=== PATIENT | male | born 1990 | race African-American/Black ===

== ENCOUNTER 2020-06-18 08:33 | Outpatient (REF) | payer MEDICAID, SELFPAY | END 2020-06-18 08:34 | disposition home or self-care (01) | LOC: HO.LAB 08:33 | PROVIDERS: Visit Provider Internal Medicine | DX: Z20.822 Contact with and (suspected) exposure to COVID-19 (principal) | CPT/HCPCS: 36415; C9803; U0003; U0005 ==

== ENCOUNTER → 2021-08-12 14:23 | Outpatient (BNVA) | payer OTHER, SELFPAY | PROVIDERS: Visit Provider Internal Medicine | DX: S67.195A Crushing injury of left ring finger, initial encounter (principal); S67.197A Crushing injury of left little finger, initial encounter; S67.22XA Crushing injury of left hand, initial encounter; W31.9XXA Contact with unspecified machinery, initial encounter | CPT/HCPCS: 73130; 99203 ==

== ENCOUNTER → 2021-08-19 14:03 | Outpatient (BNVA) | payer OTHER, SELFPAY | PROVIDERS: Visit Provider Internal Medicine | DX: S67.195D Crushing injury of left ring finger, subsequent encounter (principal); S67.197D Crushing injury of left little finger, subsequent encounter; W23.0XXD Caught, crushed, jammed, or pinched between moving objects, subsequent encounter | CPT/HCPCS: 99213 ==

== ENCOUNTER 2023-09-27 16:21 | Emergency (ER) | payer SELFPAY ==
--- NOTE | ~2023-09-27 | XR_ITS ---
EXAMINATION: XR LUMBOSACRAL SPINE CLINICAL INFORMATION: Pain, injury COMPARISON: None available. TECHNIQUE: Three views of the lumbosacral spine. FINDINGS: The vertebral bodies and posterior elements are normal. The disc spaces are preserved and the vertebral alignment is normal. The paraspinal soft tissues are normal. XR/XR lumbar spine 2-3V IMPRESSION: Unremarkable examination.
[2023-09-27 16:28] VITALS: BP 137/73; PULSE 90; RESP 18; TEMP 37; O2SAT 97; BMI 26.5
--- NOTE | 2023-09-27 16:29 | ED.GENADULT ---
HPI - General Adult General Chief complaint: Back Pain/Injury Stated complaint: pinched nerve in back Time Seen by Provider: 09/27/23 16:33 Source: patient Mode of arrival: ambulatory Limitations: no limitations History of Present Illness HPI narrative: 33-year-old male with no significant past medical history presents to the ED today for evaluation of atraumatic left lower back pain x2 weeks, acutely worsening yesterday. Reports pain to the left lumbar region on waking 2 weeks ago. Endorses continued mild pain which was exacerbated while playing basketball yesterday. He admits the pain was so severe yesterday he took 2 oxycodone which only provided minimal pain relief. Denies radiation of pain. Pain is exacerbated with move it/ambulation. Denies hx of IVDU. Denies spinal surgeries. Denies injury or trauma. Denies fever, chills, nausea or vomiting, numbness/tingling/weakness of the lower extremities, saddle anesthesia, bowel or bladder incontinence or retention. Related Data Previous Rx's ?Medication ?Instructions ?Recorded cyclobenzaprine 5 mg tablet 5 mg PO Q8H PRN muscle spasm #10 09/27/23 tabs lidocaine 5 % topical patch 1 patch topical DAILY #15 ea 09/27/23 (Lidoderm) naproxen 500 mg tablet 500 mg PO Q8-12H PRN pain (scale 09/27/23 score 4-6) #20 tabs Allergies Allergy/AdvReac Type Severity Reaction Status Date / Time No Known Allergies Allergy Verified 09/27/23 16:30 [No Known Allergies*] Review of Systems Review of Systems: Constitutional: No fever, chills, fatigue, night sweats, weight changes ENT/Mouth: No ear pain, hearing loss, nasal congestion, sinus pain, rhinorrhea, sore throat Eyes: No eye pain, swelling, redness, vision changes, discharge Cardio: No chest pain, palpitations, [place], orthopnea, peripheral edema Pulm: No SOB, cough, sputum, wheezing, dyspnea, hemoptysis GI: No nausea, vomiting, hematemesis, abdominal pain, diarrhea, constipation, hematochezia, melena : No irregular bleeding, dysuria, frequency, urgency, hesitancy, hematuria, flank pain, urinary flow changes, urinary incontinence or retention MSK: +back pain, No neck pain, joint pain, myalgias Skin: No lesions, rashes Neuro: No weakness, numbness, paresthesias, LOC, dizziness, headache All other systems reviewed and are negative. [facility] Past Medical History Attestation statement: The following information was validated with the patient. Source: old records reviewed and nursing notes reviewed Social History Social History Advance Directives: No Advance Directives Information Provided: No Do you have a plan to hurt others: No Plan Physical Exam ED Vital Signs: Vital Signs - 24 hr 09/27/23 16:28 Temperature 98.6 F Pulse Rate 90 Respiratory Rate 18 Blood Pressure 137/73 Pulse Oximetry 97 Oxygen Delivery Method Room Air BMI result Body Mass Index 26.5 vital signs stable, afebrile Const General: cooperative, healthy appearing, comfortable, no acute distress, alert, awake and Physically active Orientation/consciousness: patient oriented x3 HENMT Head: Yes normal to inspection, Yes normocephalic and Yes atraumatic Eyes General: appearance normal, both eyes and all related structures Pupils: Equal, round and reactive pupils present EOM: EOMs intact bilaterally Neck Neck: Yes normal visual inspection, Yes full ROM and Yes no meningeal signs Resp Effort & Inspection: normal respiratory effort Auscultation: clear to auscultation bilaterally Cardio Rate: regular rate Rhythm: regular rhythm GI Inspection: Yes normal to inspection Palpation (GI): Soft to palpation and nontender General: Yes no CVA tenderness Back/Spine/Pelvis Other: + no midline spinous tenderness or step-off deformity. Is tenderness to palpation over left lumbar paraspinal muscles with palpable spasm Back: no CVA tenderness Skin General skin exam: no rashes or lesions noted Neuro Other: Strength 5/5 intact throughout.?No saddle anesthesia.?Sensation intact to light touch.?Neurovascular intact distally.? General: patient oriented x3, gait normal, tone normal, no meningeal signs and no focal motor deficits Cranial nerves: Yes Equal, round and reactive pupils present Gait exam (Neuro): Normal gait present Extrem General: Yes normal to inspection Course Course Course Narrative: RME performed by Luz Maria Chapa PA-C. Patient is a 33 year old assigned male at presenting to the emergency department with low back pain. Patient states he was playing basketball yesterday when he began to have left sided low back pain. Patient states that it dropped him to the court for 25 minutes. Patient states that he cannot tolerate sitting right now. Detailed physical exam and review of systems are deferred to the natural resources extension educator. Imaging ordered. Patient placed back in the waiting room pending room availability and results. Reevaluation(s) Reevaluation #1: 0373-- Exam consistent with spasm of lumbar paraspinal muscles. xr lumbar spine does not reveal fracture. discussed all imaging results with patient. Patient states he drove himself here and will not have a ride home so I will hold off on muscle relaxer. Patient given lidocaine patch and Toradol injection. Flexeril sent to pharmacy. Patient has remained stable throughout ED visit today. Discussed worrisome signs and symptoms and when to return to the ED. All questions answered at this time. Patient is agreeable with disposition and stable for discharge. Medical Decision Making Medical Decision Making MDM Narrative: 33-year-old male with no significant past medical history presents to the ED today for evaluation of atraumatic left lower back pain x2 weeks, acutely worsening yesterday. Vital signs stable. Afebrile. He is nontoxic-appearing and in no acute distress. In obvious discomfort with position changes. On exam, there is no midline spinous tenderness or step-off deformity. Is tenderness to palpation over left lumbar paraspinal muscles with palpable spasm. Full ROM intact to spine and b/l hips. 2+ popliteal pulses and dp/pt pulses bilaterally. NV intact distally. Sensation intact to light touch. Strength 5/5 intact throughout. Ambulating with slow but steady gait. Differential diagnosis includes MSK sprain, MSK strain, muscle spasm, disc herniation, sciatica. Low suspicion for fracture, subluxation, cauda equina, Guillain-[place], epidural abscess, cord compression. Plan for radiographs, pain control, re-evaluation. Differential Diagnosis Differential Diagnoses: The differential diagnosis associated with the presentation includes as above Admission/Observation Not indicated. Independent Interpretation I performed an independent interpretation of an: Plain X-Ray Interpretation: X-ray lumbar spine without fracture, agree with radiologist's interpretation. Radiology Impression Discussion of test interpretation with radiology: I have reviewed the radiologist's reading. Radiologist Impression: EXAMINATION: XR LUMBOSACRAL SPINE CLINICAL INFORMATION: Pain, injury COMPARISON: None available. TECHNIQUE: Three views of the lumbosacral spine. FINDINGS: The vertebral bodies and posterior elements are normal. The disc spaces are preserved and the vertebral alignment is normal. The paraspinal soft tissues are normal. XR/XR lumbar spine 2-3V IMPRESSION: Unremarkable examination. External Record Review External record reviewed: Inpatient record Prescription Management I considered prescription management with: Pain Medication (Naproxen) and Other (Flexeril, lidocaine patch) Social Determinants Patient?s care significantly limited by Social Determinants of Health including: Other Social Determinant of Health Critical Care Time Critical Care Time Critical Care Time: No Discharge Plan Discharge Clinical Impression: Lumbar paraspinal muscle spasm Patient Disposition: Home, Self-Care Instructions: Muscle Spasm (ED), Back Pain (ED), Lower Back Exercises (ED), Core Strengthening Exercises (ED) Additional Instructions: Your imaging studies today did not show acute fracture. Your pain is likely musculoskeletal. Avoid bending, lifting, or twisting. Use ice several times per day for 20 minutes at a time for the next 48 hours and then change to heat. Flexeril is a muscle relaxer. Take this at night as it makes you drowsy. Do not drive, drink alcohol, or operate machinery while taking it. Naproxen is an anti-inflammatory / pain medication. Take with food. Do not take this with Ibuprofen. Lidoderm patches are numbing patches. Apply to painful areas. In addition you may take Tylenol at home. Follow up with your primary care provider as needed If your pain worsens, if you develop new numbness, tingling, weakness, loss of bowel or bladder function call 911 or return to the ER immediately for evaluation. Prescriptions: New lidocaine [Lidoderm] 5 % adhesive patch,medicated 1 patch topical DAILY Qty: 15 0RF Rx Instructions: leave on most painful area for up to 12 hrs naproxen 500 mg tablet 500 mg PO Q8-12H PRN (Reason: pain (scale score 4-6)) Qty: 20 0RF cyclobenzaprine 5 mg tablet 5 mg PO Q8H PRN (Reason: muscle spasm) Qty: 10 0RF Referrals: [facility] [Provider Group] [facility] [Provider [facility]] [facility] [Provider Group] Stand Alone Forms: Work/School Release Print Language: Eritrean
[2023-09-27] MEDS: Lidocaine 4 % Patch ADH..PATCH 1 PATCH TRANSDERMA (17:26)
[2023-09-27] MEDS: Ketorolac Tromethamine 30 MG/ML VIAL IM (17:28)
[2023-09-27 18:15] VITALS: BP 155/88; PULSE 66; RESP 18; TEMP 36.6; O2SAT 99
== END 2023-09-27 18:16 | disposition home or self-care (01) ==
PROVIDERS: Emergency Provider Emergency Medicine
DX: M62.830 Muscle spasm of back (principal); M54.50 Low back pain, unspecified
CPT/HCPCS: 72100; 96372; 99283; 99284; J1885